=== PATIENT | male | born 1995 | race Two or more races ===

== ENCOUNTER 2020-12-05 12:35 | Outpatient (REF) | payer MEDICAID, SELFPAY | END 2020-12-05 12:36 | disposition home or self-care (01) | LOC: HO.LAB 12:35 | PROVIDERS: Visit Provider Internal Medicine | DX: Z20.822 Contact with and (suspected) exposure to COVID-19 (principal) | CPT/HCPCS: 36415; C9803; U0003 ==

== ENCOUNTER 2021-09-25 12:21 | Emergency (ER) | payer SELFPAY ==
[2021-09-25 13:21] VITALS: BP 107/72; PULSE 67; RESP 18; TEMP 36.9; O2SAT 99; BMI 29.8
[2021-09-25] MEDS: Acetaminophen 325 MG TABLET 650 MG PO (13:27)
== END 2021-09-25 15:28 | disposition left against medical advice (07) ==
PROVIDERS: Emergency Provider Emergency Medicine
DX: M54.50 Low back pain, unspecified (principal)
CPT/HCPCS: 99283

== ENCOUNTER → 2021-09-26 08:21 | Outpatient (BNVA) | payer OTHER, SELFPAY | PROVIDERS: Visit Provider Internal Medicine | DX: S39.012A Strain of muscle, fascia and tendon of lower back, initial encounter (principal); W30.89XA Contact with other specified agricultural machinery, initial encounter | CPT/HCPCS: 99202 ==

== ENCOUNTER → 2021-09-29 11:18 | Outpatient (BNVA) | payer OTHER, SELFPAY | PROVIDERS: Visit Provider Internal Medicine | DX: M54.50 Low back pain, unspecified (principal) | CPT/HCPCS: 99213 ==

== ENCOUNTER 2022-02-08 20:22 | Emergency (ER) | payer MEDICAID, SELFPAY ==
[2022-02-08 21:17] VITALS: BP 130/81; PULSE 73; RESP 18; TEMP 36.7; O2SAT 98; BMI 29.8
--- NOTE | 2022-02-08 21:33 | ED.ALLEREA ---
HPI - Allergic Reaction General Chief complaint: Skin/Abscess/Foreign Body Stated complaint: rash Time Seen by Provider: 02/08/22 21:27 Source: patient Mode of arrival: ambulatory Limitations: no limitations History of Present Illness HPI narrative: patient complaining of itching with rash in private area for last 5 6 days was seen at [facility] was given Benadryl without any much relief also patient had some rash in the hand. No history of allergies before patient does not remember any contact with chemicals but is possible as he works in [employer] Related Data Previous Rx's Medication Instructions Recorded diphenhydramine HCl 25 mg capsule 50 mg PO Q6H PRN #30 cap 02/08/22 (Benadryl) prednisone 20 mg tablet 60 mg PO DAILY #15 tab 02/08/22 Allergies Allergy/AdvReac Type Severity Reaction Status Date / Time No Known Allergies Allergy Verified 02/08/22 21:16 [No Known Allergies*] Review of Systems Review of Systems: Yes all other systems are reviewed and are negative PMFSH Past Medical History Medical History No pertinent past medical history Social History Social History Advance Directives: No Advance Directives Information Provided: No Physical Exam ED Vital Signs: Vital Signs - 24 hr 02/08/22 21:17 Temperature 98.1 F Pulse Rate 73 Respiratory Rate 18 Blood Pressure 130/81 Pulse Oximetry 98 BMI result Body Mass Index 29.8 Skin Other: erythematous rash on scrotum and penis clinically contact dermatitis Discharge Plan Discharge Clinical Impression: Contact dermatitis Patient Disposition: Home, Self-Care Instructions: Contact Dermatitis (ED) Additional Instructions: take Benadryl and prednisone as prescribed report to ER/ PCP if the rash gets worse Prescriptions: New diphenhydramine HCl [Benadryl] 25 mg capsule 50 mg PO Q6H PRN (Reason: allergic reaction) Qty: 30 0RF prednisone 20 mg tablet 60 mg PO DAILY Qty: 15 0RF Stand Alone Forms: Work/School Release Interventions: ED Discharge Assessment Last Done: 02/08/22 22:35 Discharge Date/Time: 02/08/22 22:37
[2022-02-08] MEDS: diphenhydrAMINE HCL 25 MG TABLET 50 MG PO (22:03)
[2022-02-08] MEDS: predniSONE 20 MG TABLET 60 MG PO (22:03)
== END 2022-02-08 22:37 | disposition home or self-care (01) ==
PROVIDERS: Emergency Provider Internal Medicine
DX: L25.9 Unspecified contact dermatitis, unspecified cause (principal)
CPT/HCPCS: 99283; Q0163

== ENCOUNTER → 2022-06-11 12:08 | Outpatient (BNVA) | payer OTHER, SELFPAY | PROVIDERS: Visit Provider Physician Assistant Medical | DX: L23.7 Allergic contact dermatitis due to plants, except food (principal) | CPT/HCPCS: 99203 ==

== ENCOUNTER → 2022-06-12 08:06 | Outpatient (BNVA) | payer OTHER, SELFPAY | PROVIDERS: Visit Provider Physician Assistant Medical | DX: L24.7 Irritant contact dermatitis due to plants, except food (principal) | CPT/HCPCS: 99213 ==

== ENCOUNTER 2023-06-03 17:03 | Emergency (ER) | payer OTHER, SELFPAY ==
[2023-06-03 17:15] VITALS: BP 125/86; PULSE 87; RESP 18; TEMP 36; O2SAT 97; BMI 30.8
--- NOTE | 2023-06-03 19:40 | ED.EXTPRO ---
HPI - Extremity Problem General Chief complaint: Extremity Injury, Upper Stated complaint: right hand injury Time Seen by Provider: 06/03/23 19:40 Source: patient, RN notes reviewed and old records reviewed Mode of arrival: ambulatory History of Present Illness HPI Narrative: 27-year-old male with no significant past medical history presenting to the ED complaining puncture wound to left palm s/p standing doorframe [employer] and large wood splinter going through hand. Patient admits he removed the splinter which was fully intact after incident, about 1.5 in long. Reports subsequent swelling and discomfort. Tetanus up-to-date. Denies injury to other area, weakness, numbness/tingling MD Complaint: extremity pain and extremity swelling Related Data Previous Rx's Medication Instructions Recorded diphenhydramine HCl 25 mg capsule 50 mg PO Q6H PRN allergic reaction 02/08/22 (Benadryl) #30 caps prednisone 20 mg tablet 60 mg PO DAILY #15 tabs 02/08/22 cephalexin 500 mg capsule 500 mg PO QID 7 days #28 caps 06/03/23 Allergies Allergy/AdvReac Type Severity Reaction Status Date / Time No Known Allergies Allergy Verified 06/03/23 17:15 [No Known Allergies*] Review of Systems Review of Systems: Constitutional: No Fever, No Chills ENT/Mouth: No Ear Pain, No Nasal Congestion, No sore throat, No Rhinorrhea, No Swallowing Difficulty Cardiovascular: No Chest Pain, No SOB Respiratory: No Cough, No Sputum, No Wheezing Gastrointestinal: No Nausea, No Vomiting, No Abdominal pain Musculoskeletal: + joint pain, No Myalgias, + Joint Swelling Skin: + Skin Lesions, No rash Neuro: No Weakness, No Numbness, No Paresthesias Yes all other systems are reviewed and are negative Constitutional: Constitutional: Reports as per [facility] Past Medical History Attestation statement: The following information was validated with the patient. Source: old records reviewed Medical History No pertinent past medical history Social History Social History Advance Directives: No Advance Directives Information Provided: No Physical Exam Vital Signs: Vital Signs: Last Vital Signs Temp 98.0 F 06/03/23 20:00 Pulse 84 06/03/23 20:00 Resp 16 06/03/23 20:00 BP 115/78 06/03/23 20:00 Pulse Ox 96 06/03/23 20:00 O2 Del Method Room Air 06/03/23 20:00 BMI result Body Mass Index 30.8 Const: General: cooperative, healthy appearing and no acute distress Orientation/consciousness: patient oriented x3 Limitations: no limitations HEENT: Head: Yes normal to inspection and Yes atraumatic Ears: hearing grossly normal bilaterally General nose exam: Normal external nose present Face and sinus: Yes normal facial exam Eyes: General: appearance normal, both eyes and all related structures EOM: EOMs intact bilaterally Neck: Neck: Yes normal visual inspection and Yes no meningeal signs Resp: Effort & Inspection: normal respiratory effort and no respiratory distress Cardio: Rate: regular rate Skin: Rashes: no rashes Neuro: General: patient oriented x3, tone normal and no meningeal signs Gait exam (Neuro): Normal gait present Extrem: Other: Left hand palmar/thenar eminence with noted swelling and small puncture wound. No surrounding erythema, no active bleeding, no expressible pus drainage. Mild limited ROM to left thumb secondary to pain/swelling. Finger to thumb opposition intact. Neurovascular intact Medications Administered Discontinued Medications Generic Name Dose Route Start Last Admin Trade Name Freq PRN Reason Stop Dose Admin Cephalexin HCl 500 mg 06/03/23 19:59 06/03/23 20:11 Cephalexin 500 Mg Capsule PO 06/03/23 20:00 500 mg ONCE ONE Administration Medical Decision Making Medical Decision Making MDM Narrative: 27-year-old male with no significant past medical history presenting to the ED complaining puncture wound to left palm s/p standing doorframe [employer] and large wood splinter going through hand. On exam vital signs stable, NAD, nontoxic appearing with physical exam as noted above with appreciable left thenar eminence swelling with puncture wound. No appreciable retained foreign body, active bleeding, or pus drainage. No surrounding erythema. Concern for puncture wound. Low suspicion for retained foreign body, cellulitis, tenosynovitis or abscess. Unlikely fracture Plan: Irrigate wound, PO Keflex Results discussed with patient including worrisome signs and symptoms and strict return precautions, and when to return to the emergency department. They verbalized understanding and feel safe for discharge at this time. Differential Diagnosis Differential Diagnoses: The differential diagnosis associated with the presentation includes As above External Record Review External record reviewed: Inpatient record, Office record, Outpatient record, Prior outpatient labs, Prior outpatient radiology, Primary care record and Outside ED record Tests considered The following testing was considered but not selected: As above Prescription Management I considered prescription management with: Pain Medication and Antibiotic Discharge Plan Discharge Clinical Impression: Puncture wound of hand Patient Disposition: Home, Self-Care Instructions: Puncture Wound (DC) Additional Instructions: Keflex as an antibiotic please take as prescribed Keep wound clean and dry If area begins to look infected, is red, has increasing swelling, pus drainage, you fever or decreased mobility return to the emergency department Prescriptions: New cephalexin 500 mg capsule 500 mg PO QID 7 Days Qty: 28 0RF No Action diphenhydramine HCl [Benadryl] 25 mg capsule 50 mg PO Q6H PRN (Reason: allergic reaction) Qty: 30 0RF prednisone 20 mg tablet 60 mg PO DAILY Qty: 15 0RF Referrals: Physician,Unknown J [Primary Care Provider] - Interventions: ED Discharge Assessment Last Done: 06/03/23 20:17 Discharge Date/Time: 06/03/23 20:17
[2023-06-03 20:00] VITALS: BP 115/78; PULSE 84; RESP 16; TEMP 36.7; O2SAT 96
[2023-06-03] MEDS: cephALEXin 500 MG CAPSULE PO (20:11)
== END 2023-06-03 20:17 | disposition home or self-care (01) ==
LOC: HO.ED 20:17
PROVIDERS: Emergency Provider Student in an Organized Health Care Education/Training Program
DX: S61.432A Puncture wound without foreign body of left hand, initial encounter (principal); W45.8XXA Other foreign body or object entering through skin, initial encounter; Y93.9 Activity, unspecified; Y92.9 Unspecified place or not applicable; Y99.9 Unspecified external cause status
CPT/HCPCS: 99283